=== PATIENT | male | born 1960 | race Caucasian/White ===

== ENCOUNTER → 2021-11-20 10:49 | Outpatient (CLI) | payer OTHER, SELFPAY ==
--- NOTE | ~2021-11-20 | XR_ITS ---
EXAMINATION:[id number] DATE: 11/20/2021 11:14 INDICATION: Neck pain TECHNIQUE: AP, lateral, lateral swimmers and odontoid views of the cervical spine are provided. COMPARISON: None FINDINGS: Alignment is normal. The odontoid is intact. No fracture is identified. The vertebral body heights are normal. There is mild loss of intervertebral disc space height at C4-5, C5-6, and C6-7. P revertebral soft tissues are normal. IMPRESSION: 1. Mild cervical spondylosis without acute findings. Reviewed, dictated and finalized at location A.
== END ==
PROVIDERS: PCP Family Medicine; Visit Provider Family Medicine
DX: M47.892 Other spondylosis, cervical region (principal)
CPT/HCPCS: 72040

== ENCOUNTER → 2022-03-07 16:58 | Outpatient (CLI) | payer BC, SELFPAY ==
--- NOTE | ~2022-03-07 | XR_ITS ---
. EXAMINATION: XR sacrum coccyx min 2V DATE: 03/07/2022 17:23 INDICATION: Sacrococcygeal disorders, not elsewhere classified. Tailbone pain. TECHNIQUE: 3 views of the sacrum and coccyx were obtained. COMPARISON: None. FINDINGS: Bone alignment is normal. No fracture. There is mild lumbar spondylosis. The sacroiliac des nts are normal. IMPRESSION: 1. No fracture. Reviewed, dictated and finalized at location A. IMPRESSION: 1. No fracture.
== END ==
PROVIDERS: PCP Family Medicine; Visit Provider Family Medicine
DX: M53.3 Sacrococcygeal disorders, not elsewhere classified (principal)
CPT/HCPCS: 72220

== ENCOUNTER 2022-10-16 10:58 | Emergency (ER) | payer BC, SELFPAY ==
[2022-10-16 11:14] VITALS: BP 138/76; PULSE 56; RESP 16; TEMP 36.9; O2SAT 97
--- NOTE | 2022-10-16 12:44 | ED.GENADULT ---
HPI - General Adult General Chief complaint: Upper Respiratory Infection Stated complaint: Sore Throat Source: patient Mode of arrival: ambulatory Limitations: no limitations History of Present Illness HPI narrative: PATIENT PRESENTS FOR EVALUATION OF SICK SYMPTOMS FOR LAST 3 DAYS. SYMPTOMS INCLUDE FEVER, CHILLS, SORE THROAT, NAUSEA AND BILATERAL OTALGIA. HE THOUGHT HIS SYMPTOMS WERE GETTING BETTER WITH ANY RECURRENCE THEREAFTER. NO RECENT SICK CONTACTS TO HIS KNOWLEDGE. HE INDICATES HE WAS UP MOST OF LAST NIGHT AND HAS BEEN UNABLE TO GO INTO WORK. NO VOMITING OR DIARRHEA. HE TRIED TAKING TYLENOL FOR HIS SYMPTOMS. HE DOES NOT SMOKE. NO ADDITIONAL COMPLAINTS OR CONCERNS. Related Data Home Medications Medication Instructions Recorded Confirmed aspirin 81 mg tablet,delayed 81 mg PO DAILY 01/05/20 09/14/22 release (Adult Low Dose Aspirin) Allergies Allergy/AdvReac Type Severity Reaction Status Date / Time ibuprofen Allergy Unknown Rash Verified 09/14/22 13:57 Review of Systems Review of Systems: CONSTITUTIONAL: REPORTS FEVER AND CHILLS. EYES: DENIES VISUAL CHANGES, REDNESS, OR DISCHARGE. ENT: REPORTS SORE THROAT AND BILATERAL OTALGIA. DENIES RHINORRHEA AND CONGESTION CARDIOVASCULAR: DENIES CHEST PAIN, PALPITATIONS, OR EDEMA. RESPIRATORY: DENIES COUGH OR DYSPNEA. GASTROINTESTINAL: REPORTS NAUSEA AND DIARRHEA. DENIES VOMITING GENITOURINARY: DENIES DYSURIA OR HEMATURIA. SKIN: DENIES RASH OR ITCHING. MUSCULOSKELETAL: DENIES BACK PAIN, JOINT PAIN, OR MYALGIA. NEUROLOGIC: DENIES HEADACHE, NUMBNESS, DIZZINESS, OR WEAKNESS. PSYCHIATRIC: DENIES ANXIETY OR DEPRESSION. [facility] Past Medical History Medical History History of atrial fibrillation HTN (hypertension) Surgical History Surgical History H/O cardiac radiofrequency ablation Family History Family History Sibling Malignant neoplasm of prostate Mother Patient's mother is in good health Social History Social History Smoking status: Former smoker Tobacco type: cigarettes Second hand tobacco smoke exposure: No Smoking end date: 07/22/99 Alcohol intake: current Drinks per week: 6 Substance use: never Substance use type: does not use Living arrangements: with family Occupation/Education: retired Gender identity (if verbalized by the patient): Male Sexual Orientation (if Verbalized by the Patient): Straight or Heterosexual Exam Narrative: GENERAL: WELL-APPEARING, WELL-NOURISHED, AND IN NO ACUTE DISTRESS. HEAD: NORMOCEPHALIC, ATRAUMATIC. EYES: PERRLA AND EOMI. ENT: NARES CLEAR, NO RHINORRHEA OR EPISTAXIS. MUCOUS MEMBRANES MOIST. POSTERIOR PHARYNGEAL ERYTHEMA WITHOUT EXUDATE. UVULA IS MIDLINE bILATERAL TMS PEARLY TREVIZO NONBULGING NECK: SUPPLE. NO ADENOPATHY OR MASSES. NO CAROTID BRUITS OR JVD CHEST: CLEAR TO AUSCULTATION. NO RESPIRATORY DISTRESS. NO WHEEZES RALES OR RHONCHI HEART: REGULAR RATE AND RHYTHM. NO MURMUR HEARD. NORMAL PERIPHERAL PULSES. ABDOMEN: SOFT, NONTENDER, NONDISTENDED, NORMAL ACTIVE BOWEL SOUNDS. EXTREMITIES: NORMAL RANGE OF MOTION. NO EDEMA. SKIN: WARM, DRY, NO RASH. NEURO: NO FOCAL DEFICITS. ALERT AND ORIENTED X3. PSYCH: NORMAL MOOD AND AFFECT. Course Course Emergency Course: THIS IS A 62-YEAR-OLD MALE WHO PRESENTED FOR EVALUATION OF SICK SYMPTOMS. STREP NEGATIVE. DISCUSSED WAITING FOR THROAT CULTURE BUT HE DOES NOT WISH TO PROCEED IN THAT FASHION. WILL DC WITH AUGMENT[facility]. INCREASE HYDRATION. BENADRYL MAY HELP WITH SLEEP DISTURBANCE. FOLLOW UP WITH PRIMARY PROVIDER. GO TO ER FOR WORSENING SYMPTOMS. PT IN AGREEMENT WITH PLAN OF CARE. Level of Care: Express Care Visit Vital Signs Vital signs: Vital Signs Temperature 36.9 C 10/16/22 11:14 Pulse Rate 56 L 03
== END 2022-10-16 12:48 | disposition home or self-care (01) ==
PROVIDERS: Emergency Provider Nurse Practitioner; PCP Family Medicine
DX: J02.9 Acute pharyngitis, unspecified (principal); Z87.891 Personal history of nicotine dependence; I10 Essential (primary) hypertension; I48.91 Unspecified atrial fibrillation; Z79.82 Long term (current) use of aspirin
CPT/HCPCS: 87081; 87880; 99213; G0463